=== PATIENT | male | born 1995 | race Caucasian/White ===

== ENCOUNTER 2018-04-06 22:22 | Emergency (ER) | payer SELFPAY | END 2018-04-06 23:15 | disposition left against medical advice (07) | LOC: FTE 22:22 | DX: Z53.21 Procedure and treatment not carried out due to patient leaving prior to being seen by health care provider (principal) ==

== ENCOUNTER 2018-07-28 15:36 | Emergency (ER) | payer SELFPAY | END 2018-07-28 16:22 | disposition left against medical advice (07) | LOC: E/R 15:36 | DX: Z53.21 Procedure and treatment not carried out due to patient leaving prior to being seen by health care provider (principal) ==